=== PATIENT | male | born 1945 | race Caucasian/White ===

== ENCOUNTER 2017-07-20 22:18 | Emergency (ER) | payer SELFPAY ==
[~2017-07-20] VITALS: Ht 167.6 cm; Wt 73.0 kg
[2017-07-20] MEDS ORDERED: PANTOPRAZOLE SODIUM 40 MG/VIAL IV NR (22:39)
[2017-07-20] MEDS ORDERED: ONDANSETRON HCL 4MG/2ML VIAL IV NR (22:39)
[2017-07-20] MEDS ORDERED: OCTREOTIDE ACETATE 50 MCG/ML 1ML IV NR (22:45)
[2017-07-20 23:33] LABS: CHLORIDE 107 mEq/L (98-107)
[2017-07-20 23:37] LABS: BASOPHILS % 0.9 % (0.0-2.0); EOSINOPHILS % 0.4 % (0.0-5.0); HEMATOCRIT. 33.7 % (42.0-52.0); HEMOGLOBIN. 11.1 g/dL (14.0-18.0); LYMPHOCYTES % 36.7 % (20.0-50.0); MEAN CORPUSCULAR HEMOGLOBIN 26.6 pg (28.0-32.0); MEAN CORPUSCULAR VOLUME 80.8 fL (80.0-94.0); MEAN PLATELET VOLUME 7.2 fl (7.4-10.4); PLATELET 228 x1000/uL (130-400); RED BLOOD CELL COUNT 4.16 mill/uL (4.7-6.1); RED CELL DISTRIBUTION WIDTH 23.4 % (11.6-14.6)
[2017-07-21 00:06] LABS: PLATELET ESTIMATE NORMAL
[2017-07-21 00:30] LABS: ETHANOL BLOOD 345 mg/dL
[2017-07-21] MEDS ORDERED: POTASSIUM CHLORIDE 20MEQ TABLET SR PO SCH (01:32)
[2017-07-21] MEDS ORDERED: MULTIVITAMINS,THER W-MINERALS TABLET PO SCH (01:33)
[2017-07-21 06:14] VITALS: BP 99/66
== END 2017-07-21 07:42 | disposition home or self-care (01) ==
LOC: ER 07-21 07:39 → CANBEDREQ 07-21 16:04
DX: F10.229 Alcohol dependence with intoxication, unspecified (principal); E87.6 Hypokalemia; E46 Unspecified protein-calorie malnutrition; E78.00 Pure hypercholesterolemia, unspecified; I10 Essential (primary) hypertension; Y90.8 Blood alcohol level of 240 mg/100 ml or more
CPT/HCPCS: 36415; 71045; 80053; 83690; 85025; 85610; 86850; 86900; 86901; 93005; 96374; 96375; 99285; C9113; G0482; J2354; J2405